=== PATIENT | female | born 1980 | race Caucasian/White ===

== ENCOUNTER 2017-12-07 08:13 | Inpatient (IN) | payer OTHER ==
[~2017-12-07] VITALS: Ht 160 cm; Wt 99.5 kg
[2017-12-07] VITALS (51 sets, daily range): BP systolic 92–148; BP diastolic 52–83; PULSE 56–120; TEMP 97.5–99.5
[~2017-12-07 08:13] MED LIST: METFORMIN PO; MOTRIN 600600 MG/TAB PO; MUCINEX 60600 MG/TA1 PO; PERCOCET 325 MG1 TA2 PO; PRENATAL VITAMI1 TA5 PO; VITAMIN D PO; [UNRECOGNIZED DRUG - REMARK]
[2017-12-07 12:58] LABS: BASO % 0.2 % (0.0-2.0); EOS # 0.2 (0.0-0.7); EOS % 1.7 % (0-4.0); GRAN % 74.3 % (42.2-75.2); HEMATOCRIT 36.7 % (37.0-47.0); HEMOGLOBIN 12.3 g/dl (12.5-16.0); LYMPH # 1.5 (1.2-3.4); LYMPH % 15.6 % (20.0-51.0); MEAN CELL VOLUME 86 fl (80.0-100.0); MEAN CORPUSCULAR HEMOGLOBIN 29 pg (27.0-31.0); MEAN CORPUSCULAR HGB CONC 34 g/dl (33.0-37.0); MEAN PLATELET VOLUME 9.1 fl (7.4-10.4); MONO # 0.7 (0.1-0.6); MONO % 7.7 % (1.7-9.3); PLATELET COUNT 232 K/mm3 (130-400); RED BLOOD COUNT 4.27 M/mm3 (4.10-5.30); REDCELL DISTRIBUTION WIDTH-CV 13.9 % (11.5-14.5)
[2017-12-08 01:15] VITALS: BP 120/65; PULSE 61
[2017-12-08 05:10] VITALS: BP 113/55; PULSE 68
[2017-12-08 07:20] VITALS: BP 95/64; PULSE 71; TEMP 98.2
[2017-12-08] MEDS ORDERED: MOTRIN 600600 MG/TAB PO (08:34)
[2017-12-08] MEDS ORDERED: PERCOCET 325 MG1 TA2 PO (08:35)
[2017-12-08 11:52] VITALS: BP 108/65; PULSE 74; TEMP 98.9
[2017-12-08 16:10] VITALS: BP 124/66; PULSE 78; TEMP 98.3
[2017-12-08 20:35] VITALS: BP 109/67; PULSE 61; TEMP 97.7
[2017-12-09 08:28] VITALS: BP 115/68; PULSE 58; TEMP 98.2
[2017-12-09 09:43] LABS: COLLECTION METHOD CLEAN CATCH
[2017-12-09 10:11] LABS: MUCOUS Present /lpf; PH 7 (5-8); SQUAMOUS EPITHELIAL 0-2 /hpf; URINE APPEARANCE Clear; URINE BACTERIA None Seen /hpf; URINE BILIRUBIN Negative (NEGATIVE); URINE BLOOD 3+ (NEGATIVE); URINE COLOR Yellow; URINE GLUCOSE Negative (NEGATIVE); URINE KETONE Negative (NEGATIVE); URINE LEUKOCYTE ESTERASE 1+ (NEGATIVE); URINE NITRATE Negative (NEGATIVE); URINE PROTEIN(semi-quant) Negative (NEGATIVE); URINE RBC >50 /hpf; URINE UROBILINOGEN Negative (NEGATIVE)
== END 2017-12-09 11:40 | disposition home or self-care (01) | DRG 775 ==
LOC: LDR 11:51 → OB 12:11
PROVIDERS: Obstetrics & Gynecology
PROC: 10E0XZZ Delivery of Products of Conception, External Approach (ICD-10-PCS; principal; 2017-12-07)
PROC: 0KQM0ZZ Repair Perineum Muscle, Open Approach (ICD-10-PCS; 2017-12-07)
PROC: 3E033VJ Introduction of Other Hormone into Peripheral Vein, Percutaneous Approach (ICD-10-PCS; 2017-12-07)
PROC: 10907ZC Drainage of Amniotic Fluid, Therapeutic from Products of Conception, Via Natural or Artificial Opening (ICD-10-PCS; 2017-12-07)
DX: O70.1 Second degree perineal laceration during delivery (principal); Z37.0 Single live birth; O69.2XX0 Labor and delivery complicated by other cord entanglement, with compression, not applicable or unspecified; Z3A.40 40 weeks gestation of pregnancy; Z23 Encounter for immunization
CPT/HCPCS: J1200; J2405; J2590; J7120

== ENCOUNTER 2019-11-15 10:15 | Outpatient (RCR) | payer OTHER | END 2020-01-21 | disposition home or self-care (01) | LOC: WSPT | DX: M54.5 Low back pain (principal) ==

== ENCOUNTER → 2021-08-26 | Outpatient (CLI) | payer OTHER | LOC: MC.RAD 14:50 | DX: Z12.31 Encounter for screening mammogram for malignant neoplasm of breast (principal); N63.21 Unspecified lump in the left breast, upper outer quadrant ==

== ENCOUNTER → 2021-08-28 | Outpatient (CLI) | payer OTHER | LOC: MC.RAD 10:51 | DX: N63.21 Unspecified lump in the left breast, upper outer quadrant (principal) ==

== ENCOUNTER → 2023-09-07 | Outpatient (CLI) | payer OTHER | LOC: MC.RAD 08:52 | DX: Z12.31 Encounter for screening mammogram for malignant neoplasm of breast (principal) ==